=== PATIENT | female | born 1955 | race African-American/Black ===

== ENCOUNTER 2019-02-14 09:31 | Outpatient (CLI) | payer MEDICAID ==
[~2019-02-14] VITALS: Ht 165.1 cm; Wt 96.6 kg
[2019-02-14] MEDS ORDERED: METFORMIN500 MG/5 M PO (09:59)
[2019-02-14] MEDS ORDERED: NORCO 5-325 TA1 EACH ORAL (09:59)
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
[2019-02-14 11:00] VITALS: BP 122/78
[2019-02-14] MEDS ORDERED: BP MED (11:00)
[2019-02-14] MEDS ORDERED: METFORMIN HCL500 M1 ORAL (11:00)
== END 2019-02-14 12:39 | disposition home or self-care (01) ==
LOC: PAN 09:31
DX: D64.9 Anemia, unspecified (principal); E11.9 Type 2 diabetes mellitus without complications; K21.9 Gastro-esophageal reflux disease without esophagitis; R10.13 Epigastric pain; I10 Essential (primary) hypertension; M79.7 Fibromyalgia; M06.9 Rheumatoid arthritis, unspecified

== ENCOUNTER 2019-06-22 13:37 | Outpatient (CLI) | payer MEDICAID ==
[~2019-06-22 13:37] MED LIST: BP MED; METFORMIN HCL500 M1 ORAL; METFORMIN500 MG/5 M PO; NORCO 5-325 TA1 EACH ORAL
--- NOTE | 2019-06-22 14:11 | General Progress Note ---
Assessment/Plan Problem List: (1) GERD (gastroesophageal reflux disease) ICD Codes: K21.9 - Gastro-esophageal reflux disease without esophagitis SNOMED: 410572848 (2) Fibromyalgia ICD Codes: M79.7 - Fibromyalgia SNOMED: 217860546 (3) Anemia ICD Codes: D64.9 - Anemia, unspecified SNOMED: 957163447 (4) Diabetes mellitus ICD Codes: E11.9 - Type 2 diabetes mellitus without complications SNOMED: 74612555 (5) Rheumatoid arthritis ICD Codes: M06.9 - Rheumatoid arthritis, unspecified SNOMED: 98430828 (6) Hypertension ICD Codes: I10 - Essential (primary) hypertension SNOMED: 58169275 Assessment/Plan: diverticulosis hemorrhoids gastritis repeat colon in 5 years Subjective ROS Limited/Unobtainable: Yes Allergies: Coded Allergies: No Known Allergies (Unverified , 02/14/19) Objective General Appearance: alert EENT: normal ENT inspection Neck: supple Cardiovascular: normal rate Respiratory/Chest: lungs clear Abdomen: normal bowel sounds, non tender, soft Extremities: non-tender Toni Sneed MD Jun 22, 2019 14:11
[2019-06-22 16:43] VITALS: BP 138/76
== END 2019-06-22 15:37 | disposition home or self-care (01) ==
LOC: PAN 13:37
DX: K21.9 Gastro-esophageal reflux disease without esophagitis (principal); M79.7 Fibromyalgia; D64.9 Anemia, unspecified; E11.9 Type 2 diabetes mellitus without complications; M06.9 Rheumatoid arthritis, unspecified; I10 Essential (primary) hypertension; K57.90 Diverticulosis of intestine, part unspecified, without perforation or abscess without bleeding; K64.9 Unspecified hemorrhoids; K29.70 Gastritis, unspecified, without bleeding
CPT/HCPCS: 99212